=== PATIENT | male | born 1990 | race Hispanic/Latino ===

== ENCOUNTER 2019-07-14 10:08 | Outpatient (CLI) | payer OTHER ==
--- NOTE | 2019-07-14 11:05 | MRI ---
MRI BRAIN NONCONTRAST: DATE: 07/14/2019 HISTORY: 29-year-old male with ICD-10: "S06.9XDA traumatic brain injury" FINDINGS: The ventricles are normal in size and configuration. There is no major intra-axial signal abnormality , restricted diffusion, midline shift or any other mass effect, recent or remote intra-axial hemorrhage, or extra-axial fluid collection. IMPRESSION: Normal
== END 2019-07-14 10:09 | disposition home or self-care (01) ==
LOC: BICMRI 10:08
PROVIDERS: ATTEND Psychiatry & Neurology Neurology
DX: S06.9X0A Unspecified intracranial injury without loss of consciousness, initial encounter (principal)
CPT/HCPCS: 70551